=== PATIENT | male | born 1950 | race Caucasian/White ===

== ENCOUNTER 2018-04-07 12:56 | Outpatient (CLI) | payer MEDICARE ==
[2018-04-07] MEDS ORDERED: LISI-167 PO (14:10)
[2018-04-07 14:34] LABS: ALBUMIN 3.8 g/dL (3.4-5.0); ANION GAP 5 mmol/L (5-15); CHLORIDE 105 mmol/L (98-107)
[2018-04-07 14:41] LABS: ALANINE AMINOTRANSFERASE 25 U/L (12-78); ALKALINE PHOSPHATASE 39 U/L (45-117); BILIRUBIN,TOTAL 0.5 mg/dL (0.2-1.0); CALCIUM 9.1 mg/dL (8.5-10.1); CREATININE 0.84 mg/dL (0.7-1.3)
== END 2018-04-07 23:59 | disposition home or self-care (01) ==
LOC: STAR 12:56
PROVIDERS: ATTEND Surgery
DX: Z01.818 Encounter for other preprocedural examination (principal); K42.9 Umbilical hernia without obstruction or gangrene
CPT/HCPCS: 36415; 80053; 93005

== ENCOUNTER 2018-04-12 05:49 | Day surgery (SDC) | payer MEDICARE, OTHER ==
[2018-04-07 13:57] VITALS: BP 141/84
[~2018-04-12] VITALS: Ht 165.1 cm; Wt 83.9 kg
[~2018-04-12 05:49] MED LIST: LISI-167 PO
[2018-04-12] MEDS ORDERED: BUPIVACAINE/PF-EPI 0.5% 1:200K ONE (06:56)
[2018-04-12] MEDS ORDERED: LACTATED RINGERS 1,000 ML IV SCH (06:56)
[2018-04-12 07:03] VITALS: BP 141/84
[2018-04-12] MEDS ORDERED: METOCLOPRAMIDE 5 MG/ML, 2ML ONE (07:23)
[2018-04-12] MEDS ORDERED: OXYcodone IR 5MG TABLET ONE (07:24)
[2018-04-12] MEDS ORDERED: LORazepam 2 MG/ML, 1ML ONE (07:24)
[2018-04-12] MEDS ORDERED: ACETAMINOPHEN 500 MG TABLET ONE (07:24)
[2018-04-12] MEDS ORDERED: PHENYLEPHRINE 10 MG/ML ONE (07:30)
[2018-04-12] MEDS ORDERED: LIDOCAINE-MPF 2% ,5ML ONE (07:30)
[2018-04-12] MEDS ORDERED: LORazepam 2 MG/ML, 1ML IVPush ONE (07:30)
[2018-04-12] MEDS ORDERED: GLYCOPYRROLATE 0.2MG/1ML, 5ML ONE (07:30)
[2018-04-12] MEDS ORDERED: ROCURONIUM 10 MG/ML,10ML ONE (07:30)
[2018-04-12] MEDS ORDERED: METOCLOPRAMIDE 5 MG/ML, 2ML IVPush ONE (07:30)
[2018-04-12] MEDS ORDERED: ACETAMINOPHEN 500 MG TABLET PO ONE (07:30)
[2018-04-12] MEDS ORDERED: OXYcodone IR 5MG TABLET PO ONE (07:30)
[2018-04-12] MEDS ORDERED: SUCCINYLCHOLINE 20 MG/ML, 10ML ONE (07:30)
[2018-04-12] MEDS ORDERED: CEFAZOLIN 1,000 MG ONE (07:30)
[2018-04-12] MEDS ORDERED: PROPOFOL 10 MG/ML, 20ML ONE (07:30)
[2018-04-12] MEDS ORDERED: NEOSTIGMINE 1 MG/ML, 10ML ONE (07:30)
[2018-04-12] MEDS ORDERED: MIDAZOLAM 1 MG/ML, 2ML ONE (07:35)
[2018-04-12] MEDS ORDERED: FENTANYL PF 100 MCG/2ML ONE (07:35)
[2018-04-12] MEDS ORDERED: ONDANSETRON 2MG/ML, 2ML IVPush PRN ×2 (08:30→09:00)
[2018-04-12] MEDS ORDERED: morphine SULFATE 10 MG/ML, 1ML IVPush PRN (08:30)
[2018-04-12] MEDS ORDERED: MEPERIDINE/PF 25MG/ML,1ML ONE (08:50)
[2018-04-12] MEDS ORDERED: MEPERIDINE/PF 25MG/0.5ML IVPush PRN (09:00)
[2018-04-12] MEDS ORDERED: FENTANYL PF 100 MCG/2ML IV PRN (09:00)
[2018-04-12] MEDS ORDERED: HYDROmorphone 1 MG/ML, 1ML IV PRN (09:00)
[2018-04-12] MEDS ORDERED: MIDAZOLAM 1 MG/ML, 2ML IV PRN (09:00)
[2018-04-12] MEDS ORDERED: OXYcodone 5 MG/5 ML ORAL.SOL UDC PO PRN (09:00)
[2018-04-12] MEDS ORDERED: LABETALOL 5MG/ML, 20ML IV PRN (09:00)
== END 2018-04-12 11:30 | disposition home or self-care (01) ==
LOC: OUT 05:49
PROVIDERS: ATTEND Surgery
DX: K42.9 Umbilical hernia without obstruction or gangrene (principal); Z87.891 Personal history of nicotine dependence
CPT/HCPCS: 49585; J2060; J2175; J2250; J2765; J3010; J7120; J0690; J2704; J2710; J3490; C1781; J0330; J2370

== ENCOUNTER → 2019-10-05 | Outpatient (CLI) | payer MEDICARE ==
[~2019-10-05] MED LIST changes: +AMIT25TA PO; +OMEP20TA62 PO; +REGADENOSON 0.4 MG/5 ML SYRINGE ONE
== END | disposition home or self-care (01) ==
LOC: CFH 06:53
PROVIDERS: ATTEND Internal Medicine Cardiovascular Disease
DX: I34.0 Nonrheumatic mitral (valve) insufficiency (principal); I11.9 Hypertensive heart disease without heart failure; I77.810 Thoracic aortic ectasia; R55 Syncope and collapse; Z87.891 Personal history of nicotine dependence
CPT/HCPCS: 78452; 93017; 93306; A9502; J2785

== ENCOUNTER 2019-11-22 11:26 | Day surgery (SDC) | payer MEDICARE ==
[~2019-11-22] VITALS: Ht 165.1 cm; Wt 90.0 kg
[~2019-11-22 11:26] MED LIST changes: -REGADENOSON 0.4 MG/5 ML SYRINGE ONE
[2019-11-22] MEDS ORDERED: SODIUM CHLORIDE 0.9% 1,000 ML IV SCH ×2 (12:43→16:00)
[2019-11-22] MEDS ORDERED: ASPI-515 PO (13:00)
[2019-11-22] MEDS ORDERED: AMIT25TA PO (13:00)
[2019-11-22] MEDS ORDERED: DIPHENHYDRAMINE 50 MG/ML, 1ML IVPush ONE (13:00)
[2019-11-22] MEDS ORDERED: METO-93 PO (13:00)
[2019-11-22] MEDS ORDERED: DIPHENHYDRAMINE 50 MG/ML, 1ML ONE ×2 (13:15→13:53)
[2019-11-22 13:30] VITALS: BP 154/98
[2019-11-22] MEDS ORDERED: FENTANYL PF 100 MCG/2ML ONE (13:52)
[2019-11-22] MEDS ORDERED: VERAPAMIL 2.5 MG/ML, 2ML ONE (13:52)
[2019-11-22] MEDS ORDERED: HEPARIN 1,000 UNITS/ML, 10ML ONE (13:52)
[2019-11-22] MEDS ORDERED: MIDAZOLAM 1 MG/ML, 5ML ONE (13:52)
[2019-11-22] MEDS ORDERED: LIDOCAINE-MPF 1%, 5ML ONE (13:52)
[2019-11-22] MEDS ORDERED: CLOPIDOGREL 300 MG TABLET ONE (14:26)
[2019-11-22] MEDS ORDERED: BIVALIRUDIN 250 MG ONE (14:26)
== END 2019-11-22 16:57 | disposition home or self-care (01) ==
LOC: CACL 11:26
PROVIDERS: ATTEND Internal Medicine Cardiovascular Disease
DX: R94.39 Abnormal result of other cardiovascular function study (principal); I25.10 Atherosclerotic heart disease of native coronary artery without angina pectoris; I25.83 Coronary atherosclerosis due to lipid rich plaque; I10 Essential (primary) hypertension; I25.5 Ischemic cardiomyopathy; I25.2 Old myocardial infarction; J44.9 Chronic obstructive pulmonary disease, unspecified; F12.10 Cannabis abuse, uncomplicated; E66.3 Overweight; Z68.34 Body mass index [BMI] 34.0-34.9, adult; Z79.899 Other long term (current) drug therapy; Z87.891 Personal history of nicotine dependence
CPT/HCPCS: 93458; 99156; 99157; C1769; C1894; J0583; J1200; J1644; J2250; J3010; Q9967

== ENCOUNTER → 2020-03-01 | Outpatient (CLI) | payer MEDICARE ==
[~2020-03-01] MED LIST changes: +ASPI-515 PO; +METO-93 PO
== END | disposition home or self-care (01) ==
LOC: CVU 06:56
PROVIDERS: ATTEND Internal Medicine Cardiovascular Disease
DX: I65.23 Occlusion and stenosis of bilateral carotid arteries (principal); E78.2 Mixed hyperlipidemia; I25.10 Atherosclerotic heart disease of native coronary artery without angina pectoris; I10 Essential (primary) hypertension
CPT/HCPCS: 93880